=== PATIENT | male | born 1950 | race Caucasian/White ===

== ENCOUNTER → 2022-11-26 | Emergency (ER) | payer OTHER ==
[~2022-11-26] VITALS: Ht 172.7 cm; Wt 89.4 kg
[~2022-11-26] MED LIST: CIPR500T5 PO
--- NOTE | 2022-11-26 18:00 | NUR ---
Patient arrived to ED 8 for c/o garcía catheter malfunction. Patient said he "tried irrigating it today" but he "felt pressure" and it was stuck. Patient c/o discomfort and "pressure building" in area. Patient appeared to have leg bag as indicated. Patient is alert and oriented x4. No neuro deficits. Respiration even and unlabored. No c/o pain. Dr. kaufman at bedside to [facility] patient.
--- NOTE | 2022-11-26 18:00 | NUR ---
Patient to ER bed 08 to gown for evaluation. Side rails up.
[2022-11-26 18:07] VITALS: BP_SYST 132
[2022-11-26 19:00] VITALS: BP_SYST 134
--- NOTE | 2022-11-26 19:25 | NUR ---
800 mL clear yellow urine draining from new f/c inserted
--- NOTE | 2022-11-26 19:40 | NUR ---
Patient given written and verbal discharge instructions and verbalizes understanding. ER MD discussed with patient the results and treatment provided. Patient in stable condition. ID arm band removed. Patient educated on pain management and to follow up with PMD. Pain Scale [0/10]. Opportunity for questions provided and answered. Medication side effect fact sheet provided.
[2022-11-26 20:18] LABS: BILIRUBIN,URINE NEGATIVE (NEGATIVE); BLOOD, URINE 2+ (NEGATIVE); CLARITY/URINE CLOUDY (CLEAR); COLOR,URINE YELLOW (YELLOW); GLUCOSE,URINE NEGATIVE (NEGATIVE); KETONES,URINE NEGATIVE (NEGATIVE); LEUKOCYTE ESTERASE ,URINE 3+ (NEGATIVE); NITRITE, URINE POSITIVE (NEGATIVE); PROTEIN URINE TRACE (NEGATIVE); UROBILINOGEN,URINE 0.2 (0.2-1.0)
[2022-11-26 20:26] LABS: BACTERIA,URINE MANY /HPF (None Seen); MUCUS,URINE None Seen /LPF (None Seen); WBC,URINE >100 /HPF (0-3)
--- NOTE | 2022-11-27 06:36 | NUR ---
Pt notified rx Cipro sent by Dr Hooper to his pharmacy.
== END | disposition home or self-care (01) ==
LOC: SED 17:54
DX: Z46.6 Encounter for fitting and adjustment of urinary device (principal); N39.0 Urinary tract infection, site not specified; Z79.899 Other long term (current) drug therapy
CPT/HCPCS: 81000; 87086; 99284